=== PATIENT | male | born 1990 | race Caucasian/White ===

== ENCOUNTER 2016-05-25 13:58 | Emergency (ER) | payer MEDICAID, MEDICARE, BC ==
[2016-05-25 14:36] LABS: BASOPHIL# 0.1 X 10^3uL (0.0-0.1); EOSINOPHILS 0.2 % (0.0-6.0); HEMATOCRIT 51.2 % (42.0-54.0); HEMOGLOBIN 17.4 g/dL (14.0-18.0); LYMPHOCYTES 22.7 % (20.0-40.0); MEAN CELL VOLUME 87.4 fL (80.0-100.0); MEAN CORPUS. HGB CONCENTRATION 33.9 g/dL (32.0-36.0); MEAN CORPUSCULAR HEMOGLOBIN 29.6 pg (29.0-35.0); MONOCYTES 2.8 % (2.0-10.0); MONOCYTES# 0.2 X 10^3uL (0.2-1.0); NEUTROPHILS 73.3 % (54.0-75.0); NEUTROPHILS# 6.6 X 10^3uL (2.6-6.7); PLATELET COUNT 235 X 10^3uL (130-440); RED BLOOD COUNT 5.86 X 10^6uL (4.20-6.10); RED CELL DISTRIBUTION WIDTH 11.5 % (11.5-14.5); WHITE BLOOD COUNT 8.9 X 10^3uL (3.9-10.7)
[2016-05-25 14:53] LABS: ALKALINE PHOSPHATASE 48 U/L (38-126); ALT 42 U/L (21-72); AST 26 U/L (17-59); BILIRUBIN, DIRECT 0.2 mg/dL (0.0-0.4); BILIRUBIN, TOTAL 1.1 mg/dL (0.2-1.3); BLOOD UREA NITROGEN 8 mg/dL (9-20); CALCIUM 9.7 mg/dL (8.4-10.2); CHLORIDE 100 mmol/L (98-107); CREATININE 0.9 mg/dL (0.7-1.3); EST GLOMERULAR FILTRATION RATE > 60 mL/min; GLUCOSE 97 mg/dL (70-100); LIPASE 58 U/L (23-300); SODIUM 142 mmol/L (137-145); TOTAL PROTEIN 9.2 g/dL (6.3-8.2)
[2016-05-25 14:54] LABS: ACETAMINOPHEN < 10.0 ug/mL (10.0-30.0); ETHYL ALCOHOL < 10 mg/dL (<10); SALICYLATE < 1.0 mg/dL (<20.0)
--- NOTE | 2016-05-25 15:35 | ER PHYSICIAN DOCUMENTATION ---
Physician Documentation [facility] Name:Krishna Wright Age:26 yrs Sex:Male :1990 Arrival Date:05/25/2016 Time:13:58 BedTrauma A Private MD:John Garcia ED, John Disposition: 05/25/16 15:16 Transfer ordered to [facility]. Diagnosis are Prescription Medicine Overdose, Suicide Attempt. - Reason for transfer: Specialty. - Accepting physician is Dr. Bailey. - Condition is Fair. - Problem is new. - Symptoms are unchanged. COBRA Form completed? Yes Transfer - Mode of Transportation Ambulance HPI: 05/25 14:32 This 26 yrs old Male presents to ER via Private Vehicle with complaints of jm Overdose - Divalproex. 14:32 The patient presents to the emergency department after a known overdose, that was jm intentional. Context: Method: the patient has a confirmed or suspected ingestion, Time: at 10:00, Extent: the OD/poisoning occurred at at home, Psychiatric history: the patient has a known psychiatric disorder, bipolar disorder, Previous OD/poisoning history: yes. Associated signs and symptoms: Pertinent negatives: auditory hallucinations. Severity of symptoms: in the emergency department the symptoms are unchanged. The patient has experienced a previous episode. The patient has not recently seen a physician. There were supposedly #176, 500mg pills at 10am. Pt flat out says he was trying to kill himself. Historical: - Allergies: No known drug Allergies; No known drug Allergies; - Home Meds: 1. Depakote ER 500 mg oral Tb24 2 tabs once daily for Manic Bipolar Disorder 2. Depakote ER 250 mg oral Tb24 2 tabs once daily - PMHx: DEPRESSION; BIPOLAR DISORDER; BIPOLAR DISORDER; - PSHx: None; - Tetanus: unknown unknown. - Ebola Screening: : Patient negative for fever greater than or equal to 101.5 degrees Fahrenheit, and additional compatible Ebola Virus Disease symptoms. Patient denies exposure to infectious person. Patient denies travel to an Ebola-affected area in the 21 days before illness onset. Patient negative for fever greater than or equal to 101.5 degrees Fahrenheit, and additional compatible Ebola Virus Disease symptoms. Patient denies exposure to infectious person. Patient denies travel to an Ebola-affected area in the 21 days before illness onset. No symptoms or risks identified at this time. . - Immunization history: Flu Vaccine unknown Unable to Obtain. - Social history: Smoking status: Patient uses tobacco products, current some day smoker. Smoking status: Patient states was never smoker of tobacco. Patient/guardian denies using alcohol, street drugs. ROS: 14:35 Constitutional: Negative for fatigue, fever. jm 14:35 Cardiovascular: Negative for chest pain. 14:35 Respiratory: Negative for shortness of breath. 14:35 Abdomen/GI: Negative for abdominal pain, nausea, vomiting, diarrhea. 14:35 Neuro: Negative for altered mental status, dizziness, weakness. 14:35 Psych: Positive for suicide gesture, suicidal ideation. 14:35 All other systems are negative. Exam: 14:35 Constitutional: The patient appears alert, awake, comfortable. jm 14:35 Eyes: Periorbital structures: appear normal, Conjunctiva: normal. 14:35 ENT: Mouth: is normal, Voice: is normal. 14:35 Cardiovascular: Rate: tachycardic, Rhythm: regular, Pulses: no pulse deficits are appreciated. 14:35 Respiratory: Respirations: normal, Breath sounds: are normal. 14:35 Abdomen/GI: Bowel sounds: normal, Palpation: abdomen is soft and non-tender. 14:35 Musculoskeletal/extremity: ROM: no acute changes, Calves: are non-tender, have equal circumference. 14:35 Skin: Appearance: Color: pink, no rash present. 14:35 Neuro: Orientation: is normal, Mentation: able to follow commands, slow to respond. 14:35 Psych: Behavior/mood is pleasant, cooperative, Affect is flat, Patient having thoughts of suicide. Vital Signs: 14:04 BP 129 / 91; Pulse 118; Resp 20; Temp 98.8(O); Pulse Ox 95% on R/A; Weight 79.38 kg; rs Height 5 ft. 11 in. (180.34 cm); Pain 0/10; 14:30 BP 124 / 81; Pulse 110; Resp 21; Pulse Ox 97% on R/A; Pain 0/10; rs 14:41 BP 114 / 74; Pulse 109; Resp 19; Pulse Ox 96% on R/A; Pain 0/10; rs 14:50 BP 116 / 78; Pulse 98; Resp 21; Pulse Ox 94% on R/A; Pain 0/10; rs 15:00 BP 128 / 84; Pulse 114; Resp 16; Pulse Ox 93% on R/A; lp 15:15 BP 112 / 74; Pulse 96; Resp 16; Pulse Ox 97% on R/A; lp 14:04 Body Mass Index 24.41 (79.38 kg, 180.34 cm) rs MDM: 14:06 Patient medically screened. 14:36 Differential diagnosis: Ingestion/exposure to Depakote. Data reviewed: vital signs, jm nurses notes, lab test result(s), EKG, and as a result, I will *Transfer Patient. Counseling: I had a detailed discussion with the patient and/or guardian regarding: the historical points, exam findings, and any diagnostic results supporting the discharge/admit diagnosis, lab results, the need to transfer to another facility. ECG:. 15:14 Physician consultation: Andra Bailey was called at 15:08, was contacted at 15:08. ED course: Pt is just a bit sleepy, but otherwise normal. Pt mildly tachy but otherwise stable on RA. EKG/Labs WNL. Dr. Bailey has accepted transfer. Will send by ambulance. . 05/25 14:44 Order name: CBC AUTO DIF, MDIF/RMOR IF IND; Complete Time: 15:04 [facility] 05/25 14:55 Order name: BASIC METABOLIC PANEL; Complete Time: 15:04 [facility] 05/25 14:55 Order name: HEPATIC PANEL; Complete Time: 15: [facility] 05/25 14:55 Order name: LIPASE; Complete Time: 15: [facility] 05/25 14:55 Order name: SALICYLATE; Complete Time: 15:04 [facility] 05/25 14:55 Order name: ETHYL ALCOHOL; Complete Time: 15:04 [facility] 05/25 14:55 Order name: ACETAMINOPHEN; Complete Time: 15: [facility] 05/25 14:12 Order name: Continuous Cardiac Monitoring; Complete Time: 14:32 05/25 14:12 Order name: I & O; Complete Time: 14:32 05/25 14:12 Order name: Iv Saline Lock; Complete Time: 14:32 05/25 14:12 Order name: NPO; Complete Time: 14: 05/25 14:12 Order name: Pulse Ox Continuous; Complete Time: 14:32 05/25 14:12 Order name: Suicide Precautions; Complete Time: 05/25 14:12 Order name: 12-lead EKG; Complete Time: EC:36 Rate is 106 beats/min. Rhythm is regular. QRS Delta is Normal. MI interval is normal. QRS interval is normal. QT interval is normal. No Q waves. T waves are Normal. No ST changes noted. Dispensed Medications: No medications were administered Signatures: Yudi Krueger RN RN rs Pavlish, Lena, RN RN lp Meyer, John, MD MD jm
--- NOTE | 2016-05-25 15:35 | ER NURSING DOCUMENTATION ---
Nurse's Notes [facility] Name:Krishna Wright Age:26 yrs Sex:Male :1990 Arrival Date:05/25/2016 Time:13:58 BedTrauma A Private MD:John Garcia Diagnosis:Prescription Medicine Overdose;Suicide Attempt Presentation: 05/25 14:08 Presenting complaint: Patient states: States he was trying to kill himself. Admits to rs taking several benadryl at the same time, and denies any other medications. States he did take the entire bottle of Depakote. Father states: Patient ingested an entire bottle of Depakote ER 500 mg refilled on 05/23/2016 for #180. States he hides the bottle from his son, but he found it. There was a medication change 2 or 3 weeks ago and since that time he has been depressed. Depakote 88,000 mg. Transition of care: patient was not received from another setting of care. 14:08 Acuity: BINA 2 rs 14:08 Method Of Arrival: Private Vehicle rs 14:16 Notified ED Physician of Nikko Jovel notified. lp Triage Assessment: 14:18 General: Appears in no apparent distress, Behavior is drowsy. Pain: Denies pain. EENT: lp No deficits noted. Neuro: Level of Consciousness is awake, alert, post ictal, Oriented to person, place, time, event, Pediatric Cns are equal bilaterally Moves all extremities. Cardiovascular: No deficits noted. Respiratory: No deficits noted. GI: No deficits noted. : No deficits noted. Derm: No deficits noted. Musculoskeletal: No deficits noted. 14:42 Cardiovascular: Capillary refill < 3 seconds Heart tones S1 S2 Pulses are 3+ in left rs radial artery Denies fatigue, lightheadedness, palpitations, Rhythm is sinus tachycardia Chest pain is denied. Respiratory: Respiratory effort is even, unlabored, Respiratory pattern is regular, symmetrical, Breath sounds are clear bilaterally. GI: Abdomen is flat, non- distended Bowel sounds present X 4 quads. Abd is soft and non tender Denies nausea, vomiting. Derm: Skin is pink, warm & dry. Historical: - Allergies: No known drug Allergies; No known drug Allergies; - Home Meds: 1. Depakote ER 500 mg oral Tb24 2 tabs once daily for Manic Bipolar Disorder 2. Depakote ER 250 mg oral Tb24 2 tabs once daily - PMHx: DEPRESSION; BIPOLAR DISORDER; BIPOLAR DISORDER; - PSHx: None; - Tetanus: unknown unknown. - Ebola Screening: : Patient negative for fever greater than or equal to 101.5 degrees Fahrenheit, and additional compatible Ebola Virus Disease symptoms. Patient denies exposure to infectious person. Patient denies travel to an Ebola-affected area in the 21 days before illness onset. Patient negative for fever greater than or equal to 101.5 degrees Fahrenheit, and additional compatible Ebola Virus Disease symptoms. Patient denies exposure to infectious person. Patient denies travel to an Ebola-affected area in the 21 days before illness onset. No symptoms or risks identified at this time. . - Immunization history: Flu Vaccine unknown Unable to Obtain. - Social history: Smoking status: Patient uses tobacco products, current some day smoker. Smoking status: Patient states was never smoker of tobacco. Patient/guardian denies using alcohol, street drugs. Screenin:20 Infectious Disease Risk None. Abuse screen: Denies threats or abuse. Denies injuries lp from another. Nutritional screening: No deficits noted. Assessment: 14:19 See Triage Assessment done by same RN. Pain: Denies pain. lp Vital Signs: 14:04 BP 129 / 91; Pulse 118; Resp 20; Temp 98.8(O); Pulse Ox 95% on R/A; Weight 79.38 kg; rs Height 5 ft. 11 in. (180.34 cm); Pain 0/10; 14:30 BP 124 / 81; Pulse 110; Resp 21; Pulse Ox 97% on R/A; Pain 0/10; rs 14:41 BP 114 / 74; Pulse 109; Resp 19; Pulse Ox 96% on R/A; Pain 0/10; rs 14:50 BP 116 / 78; Pulse 98; Resp 21; Pulse Ox 94% on R/A; Pain 0/10; rs 15:00 BP 128 / 84; Pulse 114; Resp 16; Pulse Ox 93% on R/A; lp 15:15 BP 112 / 74; Pulse 96; Resp 16; Pulse Ox 97% on R/A; lp 14:04 Body Mass Index 24.41 (79.38 kg, 180.34 cm) rs ED Course: 14:00 Patient arrived in ED. lm3 14:01 John Garcia MD is Private Physician. lm3 14:06 Trey El MD is Attending Physician. veronica 14:08 Yudi Krueger RN is Primary Nurse. rs 14:14 Triage completed. rs 14:15 EKG done per protocol. Performed by ED Staff. Shown to ED physician. Labs ordered per rs protocol. Drawn by ED staff. 14:[address] El notified. lp 14:20 Valuables Given to family. Patient has correct armband on for positive identification. lp Placed in gown. Bed in low position. Call light in reach. Side rails up X2. 14:20 Inserted peripheral IV: 18 gauge in left antecubital area. lp 14:28 Family accompanied patient. rs 15:10 Resting quietly. Appears to be sleeping. Awakens easily. Touched shoulder and he rs startled awake, knew where he was and what is going. Remains very cooperative. transfer to [facility]. Administered Medications: No medications were administered Outcome: 15:13 Transferred: Patient will be transferred to: [facility]. Facility rs Acceptance Time: May 25, 2016 at 14:10 Patient will be transported by: [facility]. Report called to: ED RN Nurse and Physician Charting and Notes were sent to Accepting Facility. All tests and/or procedures with results, if applicable, were sent to accepting facility. 15:13 Condition: stable 15:13 Instructed on need for transfer Demonstrated understanding of instructions. 15:16 ER care complete, transfer ordered by . veronica 15:35 Patient left the ED. rs Signatures: Yudi Krueger RN RN Reta Erickson RN RN lp Meyer, John, MD MD jm McKibbon-Moore, Lisa lm3
== END 2016-05-25 15:35 | disposition short-term general hospital (02) ==
LOC: ER 13:58
DX: T42.6X2A Poisoning by other antiepileptic and sedative-hypnotic drugs, intentional self-harm, initial encounter (principal); F99 Mental disorder, not otherwise specified; F32.9 Major depressive disorder, single episode, unspecified; F31.9 Bipolar disorder, unspecified; F17.210 Nicotine dependence, cigarettes, uncomplicated; Z79.899 Other long term (current) drug therapy; Z74.3 Need for continuous supervision
CPT/HCPCS: 80048; 80076; 80305; 80307; 80320; 80329; 83690; 85025; 93005; 99285; A0425; A0427